=== PATIENT | male | born 1945 | race Caucasian/White ===

== ENCOUNTER 2017-08-31 20:08 | Observation (INO) ==
[2017-08-31 20:52] LABS: Basophils % 0.3 %; Eosinophils # 0.1 K/mcL (0.0-0.6); Eosinophils % 0.8 %; Hematocrit 47.6 % (37.5-50.1); Hemoglobin 15.7 g/dL (12.9-16.9); Immature Granulocytes % 0.4 % (0-4); Lymphocytes % 25.6 %; Mean Corpuscular Volume 90.8 fL (83.0-100.0); Monocytes # 0.9 K/mcL (0.0-1.3); Monocytes % 7.7 %; Neutrophils # 7.7 K/mcL (1.6-8.9); Platelet Count 270 K/mcL (140-400); Red Blood Count 5.24 M/mcL (4.19-5.50); Red Cell Distribution Width 13.5 % (11.5-14.5); Segmented Neutrophils % 65.2 %
[2017-08-31 20:55] LABS: Ethanol < 10 mg/dL (0-10)
[2017-08-31 21:00] LABS: Bilirubin,Urine Negative (Negative); Blood,Urine Negative (Negative); Clarity,Urine Clear (Clear); Color,Urine Yellow (Yellow); Glucose,Urine (UA) Normal (Normal); Ketones,Urine Negative (Negative); Leukocyte Esterase,Urine Trace (Negative); Nitrite,Urine Negative (Negative); PH,Urine 6.5 pH Units (5.0-8.0); Protein,Urine Negative (Neg-Trace); Specific Gravity,Urine > 1.030 (1.010-1.025); Urobilinogen,Urine Normal (Normal)
[2017-08-31 21:00] LABS: INR 1.1; Prothrombin Time 11.9 Seconds (9.4-12.1)
[2017-08-31 21:01] LABS: Alanine Aminotransferase 45 Units/L (7-52); Albumin 4.4 g/dL (3.5-5.7); Albumin/Globulin Ratio 1.4 (1.1-2.2); Alkaline Phosphatase 63 Units/L (34-104); Aspartate Amino Transferase 32 Units/L (13-39); BUN/Creatinine Ratio 14 (6-26); Bilirubin,Direct 0.1 mg/dL (0.0-0.2); Bilirubin,Indirect 0.7 mg/dL (0.0-1.2); Bilirubin,Total 0.8 mg/dL (0.3-1.0); Blood Urea Nitrogen 17 mg/dL (8-23); Calcium 9.5 mg/dL (8.6-10.3); Carbon Dioxide 26 mEq/L (23-29); Chloride 103 mEq/L (98-107); Globulin 3.2 g/dL (2.4-3.5); Glucose 99 mg/dL (70-105); Osmolality,Calculated 292 (280-300); Potassium 4.1 mEq/L (3.5-5.1); Sodium 140 mEq/L (136-145); Total Protein 7.6 g/dL (6.4-8.9); Troponin I < 0.03 ng/mL (< 0.04); eGFR For African Americans > 60 (> 60); eGFR For Non-African Americans > 60 (> 60)
[2017-08-31 21:01] LABS: Bacteria,Urine None Seen per hpf (None-Few); Hyaline Casts,Urine None Seen per lpf (None-Few); RBC,Urine 0-3 per hpf (0-3); Squamous Epithelial Cell,Urine Moderate per lpf (None-Few)
[2017-08-31 21:03] LABS: Activated Partial Thrombo Time 33.9 Seconds (26.0-36.0)
[2017-08-31 21:04] LABS: Amphetamine Screen,Urine Negative ng/mL (Cutoff=1000); Barbiturate Screen,Urine Negative ng/mL (Cutoff=200); Benzodiazepines Screen,Urine Negative ng/mL (Cutoff=200); Cannabinoid Screen,Urine Negative ng/mL (Cutoff = 50); Cocaine Screen,Urine Negative ng/mL (Cutoff= 300); Opiate Screen,Urine Negative ng/mL (Cutoff=300); Phencyclidine Screen,Urine Negative ng/mL (Cutoff=25)
--- NOTE | 2017-08-31 21:33 | Emergency Department Note ---
Disposition Clinical Impression: Altered mental status Qualifiers: Altered mental status type: unspecified Qualified Code(s): R41.82 - Altered mental status, unspecified Disposition: Admitted As Inpatient Condition: Fair Time of Disposition: 21:57 Altered Mental Status HPI - General Chief Complaint: ED Altered Mental Status Time Seen by Provider: 08/31/17 20:12 Source: patient, EMS Mode of arrival: EMS Limitations: altered mental status Nursing Notes Reviewed: Yes Vital Signs Reviewed: Yes - History of Present Illness HPI Narrative: 72-year-old male presents to the emergency department for altered mental status and confusion. Family states that today they do no see was unable to answer questions such as what is a week is where he was switched very abnormal for him. He also notes that he had elevated blood pressure which he does not have history of. They said it was 180 systolic. This 80s had no recent falls or any changes recently. He has had no fevers or chills or nausea vomiting has no pain and patient says he is completely symptom-free at this time. He had no burning with urination. No changes in bowel movements. Patient has no pain including abdominal pain, shortness of breath or chest pain. He has no generalized weakness or peritonitis and on the arms or legs - Related Data Home Medications Medication Instructions Recorded Confirmed Aspirin 81 mg PO DAILY 10/04/16 08/31/17 Mv-Mn/FA/Vit K/Lycop/Lut/Coq10 1 each PO DAILY 10/04/16 08/31/17 [Daily Multivitamin Capsule] Omeprazole [PriLOSEC] 20 mg PO DAILY 10/04/16 08/31/17 Allergies Allergy/AdvReac Type Severity Reaction Status Date / Time No Known Allergies Allergy Verified 10/04/16 07:49 Review of Systems: 10 point review of systems done and negative unless otherwise stated in the history of present illness. All systems ED: reviewed and negative except as stated. Review of Systems: As Per HPI Past Medical History - Past Medical History Attestation: Yes The following information was validated with the patient. Source: patient Medical history: Reports: GERD Psychiatric history: Reports: no psych history - Social History Smoking Status: Former smoker Smokeless Tobacco Status: No Alcohol use: Reports: none Drug use: Reports: none Physical Exam - General Limitations: altered mental status General appearance: alert, in no apparent distress - Head Head exam: atraumatic, normocephalic, normal inspection - Eye Eye exam: Present: normal appearance, PERRL, EOMI - ENT ENT exam: normal exam, normal oropharynx, mucous membranes moist - Neck Neck exam: Present: normal inspection, full ROM, trachea midline - Chest Chest inspection: Present: normal inspection, symmetric chest wall rise - Respiratory Respiratory exam: Present: normal lung sounds bilaterally. Absent: respiratory distress - Cardiovascular Cardiovascular exam: Present: regular rate, normal rhythm, normal heart sounds - Abdominal Exam Abdominal exam: Present: soft, Non-Tender. Absent: tenderness, distention, guarding, rebound, rigidity - Extremities Exam Extremities exam: Present: normal inspection, full ROM. Absent: tenderness, pedal edema - Expanded Lower Extremity Exam Neurovascular/Tendon exam: Absent: motor deficit, sensory deficit, tendon deficit - Back Exam Back exam: Present: normal inspection, full ROM. Absent: tenderness, CVA tenderness (R), CVA tenderness (L) - Neurological Exam Neurological exam: Present: alert, oriented X3, CN II-XII intact, normal gait. Absent: motor sensory deficit - Expanded Neurological Exam Patient oriented to: Present: person, place, time Speech: Present: fluid speech Cranial nerves: EOM function (II, III, IV, ): Normal, facial sensation (V): Normal, facial palsy (VII): Normal, spinal accessory function (XI): Normal, tongue deviation (XII): Normal Cerebellar function: finger to nose: Normal, heel to willams: Normal Cerebellar function: normal gait Motor strength - LUE: 5/5 Motor strength - RUE: 5/5 Motor strength - LLE: 5/5 Motor strength - RLE: 5/5 Upper motor neuron exam: amy neglect: Absent bilaterally, pronator drift: Absent bilaterally Sensory exam upper extremity: light touch: Normal Sensory exam lower extremity: light touch: Normal Coma Scale Eye Opening: Spontaneous Coma Scale Motor Response: Obeys Commands Coma Scale Verbal Response: Oriented Coma Scale Total: 15 - Skin Skin exam: Present: warm, dry, intact, normal color Course Course Narrative: 22-year-old male presented to the emergency room with altered mental status. On exam there was no acute neurological deficits he was alert and oriented 3. We did get CT angiogram of the head and neck as well as basic altered mental status labs including CBC, BMP, ethanol, urinalysis, lactate. Will see a chest x-ray EKG. Decision pending results Vital Signs Temperature 97.9 F 08/31/17 20:13 Pulse Rate 118 08/31/17 20:13 Respiratory Rate 18 08/31/17 20:13 Blood Pressure 186/96 08/31/17 20:13 O2 Sat by Pulse Oximetry 96 08/31/17 20:13 Temperature 97.9 F 09/01/17 02:48 Pulse Rate 78 09/01/17 02:59 Respiratory Rate 16 09/01/17 02:48 Blood Pressure 107/71 09/01/17 02:59 O2 Sat by Pulse Oximetry 93 09/01/17 02:48 Oxygen Delivery Oxygen Delivery Room Air Altered Mental Status - MDM Narrative Medical decision making narrative: 72-year-old male presents to the emergency department with generalized confusion. On my exam there are no neurological deficits. Patient was alert and oriented to me. We did do CT A of head and neck which had no acute abdomen allergies. All labs are normal. Urinalysis they recommended for culture but after evaluating it myself I do think this was a dirty urine and is not needed to be treated at this time. Due to patient having this acute episode we feel that admission to the hospital is recommended. I did speak with Dr. Kay who agreed to admit the patient to their service. Patient is admitted in stable condition at this time. - Medical Records Medical records reviewed: Yes I reviewed the patient's medical records. - Lab Data Lab results reviewed: Yes I reviewed the patient's lab results. Result diagrams: 08/31/17 20:26 08/31/17 20:26 Lab Results 08/31/17 08/31/17 08/31/17 Range/Units 20:19 20:26 20:26 WBC 11.8 H (4.3-11.1) K/mcL RBC 5.24 (4.19-5.50) M/mcL Hgb 15.7 (12.9-16.9) g/dL Hct 47.6 (37.5-50.1) % MCV 90.8 (83.0-100.0) fL MCH 30.0 (28.0-33.3) pg MCHC 33.0 (31.6-35.5) g/dL RDW 13.5 (11.5-14.5) % Plt Count 270 (140-400) K/mcL MPV 10.0 (9.4-12.4) fL Immature Gran % 0.4 (0-4) % Seg Neutrophils % 65.2 % Lymphocytes % 25.6 % Monocytes % 7.7 % Eosinophils % 0.8 % Basophils % 0.3 % Neutrophils # 7.7 (1.6-8.9) K/mcL Lymphocytes # 3.0 (0.6-4.6) K/mcL Monocytes # 0.9 (0.0-1.3) K/mcL Eosinophils # 0.1 (0.0-0.6) K/mcL Basophils # 0.0 (0.0-0.2) K/mcL PT 11.9 (9.4-12.1) Seconds INR 1.1 APTT 33.9 (26.0-36.0) Seconds Sodium (136-145) mEq/L Potassium (3.5-5.1) mEq/L Chloride (98-107) mEq/L Carbon Dioxide (23-29) mEq/L BUN (8-23) mg/dL Creatinine (0.70-1.30) mg/dL Est GFR ( Amer) (> 60) Est GFR (Non-Af Amer) (> 60) BUN/Creatinine Ratio (6-26) Glucose (70-105) mg/dL POC Glucose 89 (58-89) Calculated Osmolality (280-300) Calcium (8.6-10.3) mg/dL Total Bilirubin (0.3-1.0) mg/dL Direct Bilirubin (0.0-0.2) mg/dL Indirect Bilirubin (0.0-1.2) mg/dL AST (13-39) Units/L ALT (7-52) Units/L Alkaline Phosphatase (34-104) Units/L Troponin I (< 0.04) ng/mL Serum Total Protein (6.4-8.9) g/dL Albumin (3.5-5.7) g/dL Globulin (2.4-3.5) g/dL Albumin/Globulin Ratio (1.1-2.2) Urine Color (Yellow) Urine Clarity (Clear) Urine pH (5.0-8.0) pH Units Ur Specific [place] (1.010-1.025) Urine Protein (Neg-Trace) mg/dL Urine Glucose (UA) (Normal) mg/dL Urine Ketones (Negative) mg/dL Urine Blood (Negative) Urine Nitrite (Negative) Urine Bilirubin (Negative) Urine Urobilinogen (Normal) mg/dL Ur Leukocyte Esterase (Negative) Urine Microscopic RBC (0-3) per hpf Urine Microscopic WBC (0-3) per hpf Ur Squamous Epith Cells (None-Few) per lpf Urine Bacteria (None-Few) per hpf Hyaline Casts (None-Few) per lpf Ur Culture Indicated? (NO) Urine Opiates Screen (Lgmoct=418) ng/mL Ur Barbiturates Screen (Jospyw=046) ng/mL Ur Phencyclidine Scrn (Cutoff=25) ng/mL Ur Amphetamines Screen (Tudrpi=0454) ng/mL U Benzodiazepines Scrn (Nlumjf=162) ng/mL Urine Cocaine Screen (Cutoff= 300) ng/mL U Marijuana (THC) Screen (Cutoff = 50) ng/mL Ethyl Alcohol (0-10) mg/dL 08/31/17 08/31/17 08/31/17 Range/Units 20:26 20:45 20:45 WBC (4.3-11.1) K/mcL RBC (4.19-5.50) M/mcL Hgb (12.9-16.9) g/dL Hct (37.5-50.1) % MCV (83.0-100.0) fL MCH (28.0-33.3) pg MCHC (31.6-35.5) g/dL RDW (11.5-14.5) % Plt Count (140-400) K/mcL MPV (9.4-12.4) fL Immature Gran % (0-4) % Seg Neutrophils % % Lymphocytes % % Monocytes % % Eosinophils % % Basophils % % Neutrophils # (1.6-8.9) K/mcL Lymphocytes # (0.6-4.6) K/mcL Monocytes # (0.0-1.3) K/mcL Eosinophils # (0.0-0.6) K/mcL Basophils # (0.0-0.2) K/mcL PT (9.4-12.1) Seconds INR APTT (26.0-36.0) Seconds Sodium 140 (136-145) mEq/L Potassium 4.1 (3.5-5.1) mEq/L Chloride 103 (98-107) mEq/L Carbon Dioxide 26 (23-29) mEq/L BUN 17 (8-23) mg/dL Creatinine 1.18 (0.70-1.30) mg/dL Est GFR ( Amer) > 60 (> 60) Est GFR (Non-Af Amer) > 60 (> 60) BUN/Creatinine Ratio 14 (6-26) Glucose 99 (70-105) mg/dL POC Glucose (58-89) Calculated Osmolality 292 (280-300) Calcium 9.5 (8.6-10.3) mg/dL Total Bilirubin 0.8 (0.3-1.0) mg/dL Direct Bilirubin 0.1 (0.0-0.2) mg/dL Indirect Bilirubin 0.7 (0.0-1.2) mg/dL AST 32 (13-39) Units/L ALT 45 (7-52) Units/L Alkaline Phosphatase 63 (34-104) Units/L Troponin I < 0.03 (< 0.04) ng/mL Serum Total Protein 7.6 (6.4-8.9) g/dL Albumin 4.4 (3.5-5.7) g/dL Globulin 3.2 (2.4-3.5) g/dL Albumin/Globulin Ratio 1.4 (1.1-2.2) Urine Color Yellow (Yellow) Urine Clarity Clear (Clear) Urine pH 6.5 (5.0-8.0) pH Units Ur Specific [place] > 1.030 H (1.010-1.025) Urine Protein Negative (Neg-Trace) mg/dL Urine Glucose (UA) Normal (Normal) mg/dL Urine Ketones Negative (Negative) mg/dL Urine Blood Negative (Negative) Urine Nitrite Negative (Negative) Urine Bilirubin Negative (Negative) Urine Urobilinogen Normal (Normal) mg/dL Ur Leukocyte Esterase Trace H (Negative) Urine Microscopic RBC 0-3 (0-3) per hpf Urine Microscopic WBC 5-15 H (0-3) per hpf Ur Squamous Epith Cells Moderate H (None-Few) per lpf Urine Bacteria None Seen (None-Few) per hpf Hyaline Casts None Seen (None-Few) per lpf Ur Culture Indicated? YES A (NO) Urine Opiates Screen Negative (Fpoyat=559) ng/mL Ur Barbiturates Screen Negative (Nebulz=218) ng/mL Ur Phencyclidine Scrn Negative (Cutoff=25) ng/mL Ur Amphetamines Screen Negative (Jumfux=9764) ng/mL U Benzodiazepines Scrn Negative (Kehcfj=784) ng/mL Urine Cocaine Screen Negative (Cutoff= 300) ng/mL U Marijuana (THC) Screen Negative (Cutoff = 50) ng/mL Ethyl Alcohol < 10 (0-10) mg/dL - Radiology Data Radiology results reviewed: Yes I reviewed the patient's radiology results. - EKG Data EKG attestation: Yes I reviewed and interpreted this EKG. EKG results narrative: EKG done at 2015 review myself and attending shows sinus tachycardia at a rate of 111, MO interval 116, QRS 93, QTc 411 with a leftward axis. There is no acute ST changes no acute T-wave abnormalities or signs of ischemia. no signs of hypertrophy or heart strain. no signs of wpw/brugada syndrome. No old EKG to compare with Attestation Statement - Attestation Attestation: I examined this patient and my medical decision-making was reviewed with the Resident Physician. I agree with the documented findings, disposition and treatment plan as described except to the extent set forth below. Possible TIA. CT angiography shows no acute occlusive disorder. No evidence of acute stroke on CTA. Full dose aspirin given. I would proceed with admission for medical maximization as well as advanced imaging with MRI as well as monitoring of blood pressure and maintenance of permissive hypertension. NIH score was 0 at time of admission
[2017-08-31] MEDS ORDERED: Aspirin 81 MG TAB.CHEW PO ONE (21:47)
[2017-08-31] MEDS ORDERED: Naloxone 0.4 MG/ML INJ IVP PRN (22:03)
[2017-08-31] MEDS ORDERED: Acetaminophen 325 MG TABLET PO PRN (22:03)
--- NOTE | 2017-08-31 22:10 | Internal Med History&Physical ---
Date of Encounter: 08/31/17 Time of Encounter: 21:30 Assessment and Plan (1) Acute encephalopathy Current visit: Yes Status: Acute Symptoms resolved spontaneously. Consider metabolic encephalopathy probably due to hypertension or UTI. - CTA head and neck has been done, unremarkable - Place patient on continuous cardiac monitoring to rule out arrhythmia - Echocardiogram to rule out heart structural abnormalities (2) UTI (urinary tract infection) Current visit: Yes Status: Acute Patient has no symptoms of urination. But UA shows positive. Patient has a mild elevated WBC and tachycardia, with altered mental status. We will treat patient with the Rocephin and a follow-up urine culture. Qualifiers: Urinary tract infection type: acute cystitis Hematuria presence: without hematuria Qualified Code(s): N30.00 - Acute cystitis without hematuria (3) Hypertension Current visit: Yes Status: Acute Patient has no history of hypertension previously. Last doctor visits was last April, BP is okay per patient. - We will start labetalol 100 mg by mouth twice a day, closely monitor BP - Lifestyle modification as outpatient, closely follow-up with PCP to adjust the medications Qualifiers: Hypertension type: essential hypertension Qualified Code(s): I10 - Essential (primary) hypertension (4) DVT prophylaxis Current visit: Yes Status: Acute Patient is expected to have a short hospitalization. He is ambulating well. No anticoagulation placed Internal Medicine - H&P: HPI Chief complaint: Altered mental status Admitted From: Home Plans for Post Hospital Care: Home History of present illness: Mr. Pruitt is a 72 year old male with no known medical history of present to ER for altered mental status since afternoon. Patient said since this afternoon he feels confusion. He repeatedly asked of the same questions. His friend came to his house and checked his blood pressure, which is high. EMS was called and the patient was brought to ER. Patient said he does not remember exactly what happened during the transportation. Patient denies slurred speech , seizure, focal weakness/numbness, urination or fecal incontinence. Patient denies a fever, headache, dizziness, nausea or vomiting, shortness of breath, or chest pain. Patient denies abdominal pain or urination symptoms. Patient feels much better now. When I see patient in emergency room, she is AAO 3, in no acute distress. His blood pressure was 180s initially, get down to 140s now. Patient was admitted for further monitoring and management. Past Med Surg Social Fam HX - Past Medical History Medical history: GERD Psychiatric history: no psych history - Social History Smoking Status: Former smoker Smokeless Tobacco Status: No Alcohol use: none Drug use: none - Family History Mother History Unknown: Yes Internal Medicine - H&P: Meds Aspirin 81 mg PO DAILY 10/04/16 [History] Mv-Mn/FA/Vit K/Lycop/Lut/Coq10 [Daily Multivitamin Capsule] 1 each PO DAILY [History] Omeprazole [PriLOSEC] 20 mg PO DAILY 10/04/16 [History] 3 Allergy/AdvReac Type Severity Reaction Status Date / Time No Known Allergies Allergy Verified 10/04/16 07:49 All Systems PM: A 10-system review of systems was performed and is negative for pertinent findings except as documented above in the HPI. - Constitutional Vitals: Temp Pulse Resp BP Pulse Ox 97.9 F 108 18 165/112 95 08/31/17 20:13 08/31/17 21:48 08/31/17 21:48 08/31/17 21:48 08/31/17 21:48 General appearance: Present: A&O X 3, no acute distress, answers questions appropriately - Head Head exam: Present: atraumatic, normocephalic - Eye Eye exam: Present: PERRL, conjuntiva pink, sclera anicteric Pupils: Present: PERRL - Neck Neck exam general surgery: Present: supple, trachea midline. Absent: lymphadenopathy - Respiratory Respiratory exam: Present: CTAB. Absent: accessory muscle use, rales, rhonchi, wheezes - Cardiovascular Cardiovascular exam: Present: RRR, +S1, +S2. Absent: diastolic murmur, gallop, rubs, systolic murmur - GI/Abdominal GI/Abdominal exam: Present: normal bowel sounds, soft, no peritoneal signs. Absent: distended, tenderness - Extremities Exam Extremities exam: Present: warm, radial pulses palpable and symmetrical. Absent : calf tenderness, cyanotic, pedal edema - Neurological Exam Neurological exam: Present: CN II-XII intact, oriented X3, no focal deficits. Absent: pronater drift, facial droop, speech deficit - Skin Skin exam: Present: dry, intact Internal Med - H&P Results - Labs CBC & Chem 7: 08/31/17 20:26 08/31/17 20:26 - EKG Data -: EKG Interpreted by Myself EKG shows normal: sinus rhythm Rate: tachycardia
[2017-08-31] MEDS ORDERED: *HR* LORazepam 2 MG/ML VIAL IVP PRN ×3 (22:23)
[2017-08-31] MEDS ORDERED: cefTRIAXone 1,000 MG in Water for inj. (sterile) 20 ML 10 ML IVP SCH (23:00)
[2017-09-01 06:50] LABS: Basophils % 0.3 %; Eosinophils # 0.1 K/mcL (0.0-0.6); Eosinophils % 1.5 %; Hematocrit 42.1 % (37.5-50.1); Hemoglobin 14.3 g/dL (12.9-16.9); Immature Granulocytes % 0.3 % (0-4); Lymphocytes # 2.2 K/mcL (0.6-4.6); Lymphocytes % 29.8 %; Mean Corpuscular Hemoglobin 30.4 pg (28.0-33.3); Mean Corpuscular Volume 89.4 fL (83.0-100.0); Mean Platelet Volume 10.1 fL (9.4-12.4); Monocytes # 0.7 K/mcL (0.0-1.3); Monocytes % 9.8 %; Neutrophils # 4.3 K/mcL (1.6-8.9); Platelet Count 239 K/mcL (140-400); Red Blood Count 4.71 M/mcL (4.19-5.50); Red Cell Distribution Width 13.7 % (11.5-14.5); Segmented Neutrophils % 58.3 %
[2017-09-01 07:20] LABS: BUN/Creatinine Ratio 15 (6-26); Blood Urea Nitrogen 17 mg/dL (8-23); Calcium 8.9 mg/dL (8.6-10.3); Carbon Dioxide 26 mEq/L (23-29); Chloride 103 mEq/L (98-107); Glucose 106 mg/dL (70-105); Osmolality,Calculated 284 (280-300); Potassium 3.7 mEq/L (3.5-5.1); Sodium 136 mEq/L (136-145); eGFR For African Americans > 60 (> 60); eGFR For Non-African Americans > 60 (> 60)
[2017-09-01] MEDS ORDERED: Aspirin 81 MG TAB.CHEW PO SCH (09:00)
[2017-09-01 11:20] VITALS: BP 127/77
--- NOTE | 2017-09-01 14:39 | Discharge Summary ---
- NOTES TO OUTPATIENT PROVIDER Notes to Outpatient Provider: pcp in one week Date of Encounter: 09/01/17 Time of Encounter: 14:36 - Discharge Diagnosis (1) Hypertension Priority: Primary Status: Acute Qualifiers: Hypertension type: essential hypertension Qualified Code(s): I10 - Essential (primary) hypertension (2) UTI (urinary tract infection) Priority: Primary Status: Acute Qualifiers: Urinary tract infection type: acute cystitis Hematuria presence: without hematuria Qualified Code(s): N30.00 - Acute cystitis without hematuria (3) Acute encephalopathy Priority: Primary Status: Resolved Hospital course: Mr. Pruitt is a 72 year old male presented to the emergency room for evaluation of confusion and repeating questions. His friend called EMS because his blood pressure was high and he was brought into the emergency room. He does not remember exactly what happened but denied slurred speech, seizures focal weakness or numbness, urination or fecal incontinence fever or headache dizziness nausea or vomiting shortness of breath or chest pain. He denied abdominal pain or urinary symptoms. He felt better in the ER but was admitted since his blood pressure was elevated in the 180s initially. His symptoms resolved for the acute encephalopathy was considered metabolic secondary to hypertension or UTI. Patient has no history of hypertension and stated in his last doctor visit April 2017 his blood pressure was okay. He was given what labetalol 100 mg by mouth twice a day here and his blood pressure got rather soft. He will be sent home on Norvasc 10 mg by mouth daily and is to keep a blood pressure log which she is to take his primary care physician with him next week. Urine was positive for trace leukocytes, moderate squamous cells. Urine microscopic WBCs 5-15 with no bacteria. He was given ceftriaxone here and will be sent home on Cipro. He had no questions and according to his sister his mentation was totally back to normal. Discharge discussed with: patient, family, nurse - Time Spent with Patient Total time spent providing and/or coordinating discharge services: Less than 30 minutes - Discharge Medications Prescriptions: Amlodipine Besylate 10 mg PO DAILY #30 tablet Ciprofloxacin HCl [Cipro] 500 mg PO DAILY #5 tablet Home Medications: Aspirin 81 mg PO DAILY 10/04/16 [History] Mv-Mn/FA/Vit K/Lycop/Lut/Coq10 [Daily Multivitamin Capsule] 1 each PO DAILY [History] Omeprazole [PriLOSEC] 20 mg PO DAILY 10/04/16 [History] Amlodipine Besylate 10 mg PO DAILY #30 tablet 09/01/17 [Rx] Ciprofloxacin HCl [Cipro] 500 mg PO DAILY #5 tablet 09/01/17 [Rx] Allergies/Adverse Reactions: 3 Allergy/AdvReac Type Severity Reaction Status Date / Time No Known Allergies Allergy Verified 10/04/16 07:49 Date of admission: 08/31/17 21:54 [facility] care physician: [facility] Discharging clinician: Jeanette Adames Anticipated date of discharge: 09/01/17 - Constitutional Vitals: Temp Pulse Resp BP Pulse Ox 98.2 F 68 18 127/77 95 09/01/17 11:19 09/01/17 11:19 09/01/17 11:19 09/01/17 11:19 09/01/17 11:19 General appearance: Present: cooperative, A&O X 3, no acute distress, answers questions appropriately - Head Head exam: Present: atraumatic, normocephalic - Eye Eye exam: Present: PERRL, conjuntiva pink, sclera anicteric Pupils: Present: PERRL - Neck Neck exam general surgery: Present: supple, trachea midline. Absent: lymphadenopathy - Respiratory Respiratory exam: Present: CTAB. Absent: accessory muscle use, rales, rhonchi, wheezes - Cardiovascular Cardiovascular exam: Present: RRR, +S1, +S2. Absent: diastolic murmur, gallop, rubs, systolic murmur - GI/Abdominal GI/Abdominal exam: Present: normal bowel sounds, soft, no peritoneal signs. Absent: distended, tenderness - Extremities Exam Extremities exam: Present: warm, radial pulses palpable and symmetrical. Absent : calf tenderness, cyanotic, pedal edema - Neurological Exam Neurological exam: Present: alert, CN II-XII intact, normal gait, oriented X3, no focal deficits, strengths equal and symetr throughout. Absent: motor sensory deficit, pronater drift, facial droop, speech deficit - Skin Skin exam: Present: dry, intact, normal color, warm - Patient Status Disposition: Home, Self-Care Condition: Fair Functional capacity at discharge: independent ambulation Overall status at discharge: patient is progressing back to baseline - Discharge Instructions Instructions: Ciprofloxacin (By mouth), Amlodipine (By mouth) Follow Up With: GER[place]IA,PCP [Primary Care Provider] - 09/13/17 12:30 pm - Diet and Activity Activity: resume usual activities as tolerated Diet: low fat, low cholesterol, low salt diet
--- NOTE | 2017-09-01 22:47 | Electrocardiograph Report ---
[place] [id number] Test Date: 2017-08-31 Pat Name: Cristhian Pruitt Department: 102 Room: 3B14 Gender: M [employer]: : 1945 Requested By: Dimitri Hermos[place] Order Number: [id number] Reading MD: Avi Victor DO Measurements Intervals [place] Rate: 111 P: 30 [place]: 116 QRS: -51 QRSD: 93 T: 62 QT: 336 QTc: 401 Interpretive Statements SINUS TACHYCARDIA WITH SHORT [place] INTERVAL MARKED LEFT AXIS DEVIATION Electronically Signed On 09-01-2017 22:45:09 EDT by Avi Victor DO
== END 2017-09-01 15:19 | disposition home or self-care (01) ==
LOC: EMEROO 20:08 → 3BNU 20:08
PROVIDERS: ADMIT Internal Medicine; ATTEND Registered Nurse